=== PATIENT | female | born 1960 | race Caucasian/White ===

== ENCOUNTER 2020-06-30 08:12 | Emergency (ER) | payer MEDICAID ==
[~2020-06-30] VITALS: Ht 162.6 cm; Wt 100.0 kg
[2020-06-30 11:15] VITALS: BP 122/74
[2020-06-30] MEDS ORDERED: ASPIRIN 81MG TABLET PO ONE (11:45)
[2020-06-30 12:10] LABS: CLARITY URINE CLEAR (CLEAR); COLOR URINE YELLOW (YELLOW); KETONES URINE NEGATIVE (NEGATIVE); LEUKOCYTE ESTERASE URINE NEGATIVE (NEGATIVE); NITRITE URINE NEGATIVE (NEGATIVE); OCCULT BLOOD URINE NEGATIVE (NEGATIVE); PROTEIN URINE TRACE (NEGATIVE); UROBILINOGEN URINE 0.2 E.U./dL (0.2-1.0)
== END 2020-06-30 12:22 | disposition left against medical advice (07) ==
LOC: ER 08:29
DX: R07.89 Other chest pain (principal); Z86.73 Personal history of transient ischemic attack (TIA), and cerebral infarction without residual deficits
CPT/HCPCS: 81003; 93005; 99284; Z7610

== ENCOUNTER 2020-09-06 20:23 | Emergency (ER) | payer MEDICAID ==
[~2020-09-06] VITALS: Ht 162.6 cm; Wt 115.0 kg
[2020-09-06] MEDS ORDERED: SODIUM CHLORIDE 0.9% 1,000 ML IV ONE (21:00)
[2020-09-06 21:49] LABS: BASOPHILS % 0.2 % (0.0-2.0); EOSINOPHILS % 0.3 % (0.0-5.0); HEMATOCRIT. 37.7 % (36.0-48.0); HEMOGLOBIN. 12.2 g/dL (12.0-16.0); MEAN CORPUSCULAR HEMOGLOBIN 27.9 pg (28.0-32.0); MEAN CORPUSCULAR VOLUME 86.3 fL (81.0-99.0); MEAN PLATELET VOLUME 8.2 fl (7.4-10.4); MONOCYTES % 7.8 % (2.0-8.0); NEUTROPHILS % 75.7 % (40.0-76.0); PLATELET 187 x1000/uL (130-400); RED BLOOD CELL COUNT 4.37 mill/uL (4.2-5.4); RED CELL DISTRIBUTION WIDTH 15.3 % (11.6-14.6)
[2020-09-06 21:55] LABS: CHLORIDE 104 mEq/L (98-107)
[2020-09-06 21:59] LABS: PROTHROMBIN TIME 10.6 sec (9.6-11.0)
[2020-09-06] MEDS ORDERED: HYDROCODONE/ACETAMINOPHEN 10/325MG TABLET PO SCH (22:30)
[2020-09-06] MEDS ORDERED: VANCOMYCIN 1 G PREMIX 200 ML IV SCH (22:30)
[2020-09-07] MEDS ORDERED: SULF1TAB48 MT (00:48)
[2020-09-07] MEDS ORDERED: SULFAMETHOXAZOLE/TRIMETHOPRIM 800/160MG TABLET PO ONE (01:00)
[2020-09-07 01:29] VITALS: BP 110/45
== END 2020-09-07 01:30 | disposition home or self-care (01) ==
LOC: ER 20:23
DX: Z00.00 Encounter for general adult medical examination without abnormal findings (principal); L03.115 Cellulitis of right lower limb; I10 Essential (primary) hypertension; F17.200 Nicotine dependence, unspecified, uncomplicated
CPT/HCPCS: 36415; 71045; 73590; 80053; 83605; 84145; 84484; 85025; 85610; 87040; 93005; 93971; 96361; 96365; 99285; J3370; J7030

== ENCOUNTER 2020-09-16 20:52 | Emergency (ER) | payer MEDICAID ==
[~2020-09-16] VITALS: Ht 160 cm; Wt 113.4 kg
[~2020-09-16 20:52] MED LIST: SULF1TAB48 MT
[2020-09-16 20:53] VITALS: BP 186/85
== END 2020-09-16 22:28 | disposition home or self-care (01) ==
LOC: ER 20:52
DX: S91.204A Unspecified open wound of right lesser toe(s) with damage to nail, initial encounter (principal); W22.09XA Striking against other stationary object, initial encounter; Y93.89 Activity, other specified; Y92.018 Other place in single-family (private) house as the place of occurrence of the external cause; Z53.21 Procedure and treatment not carried out due to patient leaving prior to being seen by health care provider